=== PATIENT | male | born 1995 | race Caucasian/White ===

== ENCOUNTER 2019-07-11 19:13 | Emergency (ER) | payer MEDICAID, OTHER ==
[~2019-07-11] VITALS: Ht 170.2 cm; Wt 63.0 kg
[2019-07-11 19:18] VITALS: BP 100/42
--- NOTE | 2019-07-11 19:49 | NUR ---
PT TRIAGED. PT WALKS TO ROOM WITH STEADY GAIT. NUSRAT OSORIO AT BS FOR PT HISTORY AND ASSESSMENT AT THIS TIME. XRAY OUTSIDE OF PT ROOM AT THIS TIME TO SHOOT CHEST XRAY.
--- NOTE | 2019-07-11 21:03 | NUR ---
PT D/C WITH D/C SUMMARY AND SCRIPTS IN CARE OF FATHER. PT VERBALIZES UNDERSTANDING OF F/U CRITERIA. PT DENIES ANY OTHER NEEDS PERTAINING TO THIS VISIT. PT AMBULATES TO D/C AREA FOR D/C HOME WITH FATHER.
== END 2019-07-11 21:07 ==
LOC: ED 20:07
DX: J45.32 Mild persistent asthma with status asthmaticus (principal); R04.2 Hemoptysis; R06.00 Dyspnea, unspecified; Z87.891 Personal history of nicotine dependence
CPT/HCPCS: 71045; 93005; 99283

== ENCOUNTER 2020-06-15 23:10 | Emergency (ER) | payer MEDICAID ==
[~2020-06-15] VITALS: Ht 170.2 cm; Wt 59.6 kg
--- NOTE | 2020-06-15 23:57 | NUR ---
xray in room. Pt A&O. Warm blanket given. Will monitor.
[2020-06-16 01:35] VITALS: BP 124/55
--- NOTE | 2020-06-16 01:56 | NUR ---
Patient/Caregiver given discharge instructions and they have confirmed that they understand the instructions. Patient ambulatory with steady gait.
== END 2020-06-16 01:57 | disposition home or self-care (01) ==
LOC: ED 23:48
DX: S63.521A Sprain of radiocarpal joint of right wrist, initial encounter (principal); S60.511A Abrasion of right hand, initial encounter; J45.909 Unspecified asthma, uncomplicated; X58.XXXA Exposure to other specified factors, initial encounter; Y93.89 Activity, other specified; Y92.89 Other specified places as the place of occurrence of the external cause; Y99.8 Other external cause status
CPT/HCPCS: 29125; 99284